=== PATIENT | female | born 1975 | race Caucasian/White ===

== ENCOUNTER → 2020-08-25 11:02 | Outpatient (CLI) | payer OTHER, SELFPAY ==
--- NOTE | 2020-08-25 07:37 | HP.PCM_ITS ---
History and Physical Date of Admission: 08/25/20February [place] e[place] 1975 ? ? REFERRING PHYSICIAN: Latricia Gonsales MD ? CHIEF COMPLAINT: Consult (Consult Abn Mammo) ? HPI: The patient is a 44 year old female presents with noting a mass of the left breast and also abnormal left breast radiological studies. She notes palpable breast mass of the upper outer quadrant of the left breast - noted for years. She also notes breast pain - it occurs cyclical, about two weeks prior to menstrual periods. She denies nipple discharge. She has not had previous breast biopsies or breast surgeries. No breast or ovarian cancer noted in family. ? Mammograms 07/29/2020 There is a 1.5 cm oval mass with a circumscribed margin in the left breast at 1 o'clock middle depth. No other significant masses or calcifications are seen in the breast. ? US 07/29/2020 There is 1.5 cm x 0.9 cm x 1.3 cm oval mass with a circumscribed margin in the left breast at 1 o'clock middle depth 4 cm from the nipple. ?This oval mass is hypoechoic with a well-defined boundary and internal echoes. ? This correlates with mammography findings. IMPRESSION: SUSPICIOUS FINDING - BIOPSY SHOULD BE CONSIDERED The 1.5 cm x 0.9 cm x 1.3 cm oval mass in the left breast is suspicious of malignancy. ?An ultrasound guided biopsy is recommended. She is s/p US guided left breast biopsy on 08/03/2020. 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 However, mammograms after the biopsy reveal that clip is in different location. ? ? PAST MEDICAL HISTORY ? Asthma ? ? PAST SURGICAL HISTORY ? APPENDECTOMY HX ? ? ? CHOLECYSTECTOMY HX ? ? ? CYSTOTOMY,STONE BASKET EXTRACT Right 07/14/2020 ? LAPAROSCOPY DIAGNOSTIC ? ? ? LEEP PROCEDURE (CONTACT [employer]M DEPT)_*FL ? ? ? LEEP PROCEDURE (CONTACT PRINTER DRY FILM DEPT)_*FL ? ? ? TUBAL LIGATION HX ? Current Outpatient Medications ? HYDROcodone-Ibuprofen 10-200 mg tab Take 1 tablet by mouth every 8 hours as needed for up to 30 days. CANCEL NORCO AND ANY OTHER OPIATE RX ON FILE ? Naproxen Sodium (ANAPROX DS) 550 mg tablet Take 1 tablet by mouth every 12 hours as needed (for pain). ? albuterol HFA (PROVENTIL HFA) 90 mcg/actuation inhaler Inhale 2 Puffs as instructed every 6 hours as needed. ? tamsulosin ER (FLOMAX) 0.4 mg Take 1 capsule by mouth daily at bedtime for 10 days. ? oxybutynin ER (DITROPAN XL) 10 mg 24 hr tablet Take 1 tablet by mouth once daily for 10 days. ? tiZANidine (ZANAFLEX) 4 mg tablet Take 1 tablet by mouth every 6 hours as needed (Muscle Spasm). ? ? ALLERGIES: Acetaminophen ? PERSONAL HISTORY: Tobacco Use ? Smoking status: Current Every Day Smoker ? ? Packs/day: 0.50 ? ? Types: Cigarettes ? ? Start date: 08/03/1990 ? Smokeless tobacco: Never Used ? Tobacco comment: started smoking since 1991 Substance Use Topics ? Alcohol use: Yes ? ? Comment: occasional ? Drug use: No ? FAMILY HISTORY ? Fibromyalgia Mother ? ? other (Chronic Back Pain) Mother ? ? No Known Problems Father ? ? No Known Problems Sister ? ? Bipolar disorder Brother ? ? No Known Problems Sister ? ? ? REVIEW OF SYSTEMS: General - denies fevers, denies anorexia, denies weight loss Cardiovascular - denies chest pain, denies history of [place] Pulmonary - denies shortness of breath, denies coughing up blood Gastrointestinal - denies abdominal pain, denies hematemesis, denies blood in stools Neurological - denies seizures, denies chronic numbness/weakness of extremities, denies chronic headaches Genitourinary - denies burning with urination, denies blood in urine Hematological - denies spontaneous/prolonged bleeding Skin - denies nonhealing skin wounds Musculoskeletal - no new muscle/bone pain Endocrine - denies diabetes, no thyroid problems Psychological ? denies hallucinations Obstetrical - menarche onset at age 14, , first at age 19, BCP use - denies, Breast feeding - denies, used DEPO for <1y at age 21, LMP one week ago ? PHYSICAL EXAMINATION: General: The patient is 44 year old female, well nourished, well hydrated in no acute distress. The patient is oriented to time, place, and person. VITALS: Ht: 5'4 Wt: 162# Temp 97.6F Head ? Normocephalic. EOM intact with sclera clear and no icterus noted. Mouth with mucus membranes moist. Neck - supple with no jugular venous distention noted. Trachea is midline. No carotid bruits noted. No thyroid enlargement or thyroid nodules detected. No masses noted. Chest/breast ? no asymmetry of breasts noted, no suspicious skin lesions noted - healed biopsy site, no nipple discharge and both nipples everted, no breast masses noted Lungs ? clear to auscultation. Normal breath sounds. No rales/rhonchi/wheezing noted. No labored breathing noted, such as retractions. No cough heard. Heart ? normal S1 and S2 auscultated. No rubs/clicks/murmurs noted. Regular rate. Abdomen ? soft and benign. Normal bowel sounds No abdominal bruits noted. Difficult to determine if any masses or organomegaly due to body habitus. Extremities ? no calf tenderness noted. No pitting edema noted. Skin ? normal skin integrity. Lymph ? no cervical adenopathy detected, no supraclavicular adenopathy detected, no axillary adenopathy detected Neurological ? gait normal, no focal deficits noted Psych ? calm and appropriate RADIOLOGIC STUDIES: As Noted ? IMPRESSION: abnormal left breast radiographs ? PLAN: I have discussed the above with the patient. I have offered left breast stereotactic breast biopsy for possibility that the US lesion did not correlate with the mammographic lesion. I have explained the procedure to the patient. I have counseled the patient as to the risks of the procedure, including but not limited to: infection, bleeding, injury to any blood vessels/nerves, scar tissue, wound infections, complications of anesthesia, etc. ? the patient understands. The patient wishes to proceed. I have answered all questions to the patient?s satisfaction and the patient has no further questions. ? . Diagnoses: (R92.8) Abnormal ultrasound of breast (primary encounter diagnosis) Return to Clinic: The patient is instructed to follow-up with me as above. ? Shyann Ornelas MD
--- NOTE | 2020-08-25 11:40 | BRBX_PTH ---
PATIENT: DESTINEYKENDRICK GUDELIA LOC: [facility] U#:[id number] AGE/SX: 50/F ROOM: RE08/25/[address]: Dr. Shyann Ornelas MD : 1975 BED: DIS: SPEC #: [id number] RECD: 08/25/20 12:16 STATUS: GUNNER MARIBELL #: [id number] TY: 08/25/20 11:[address]: Shyann Ornelas DEPT: SURGICAL PATHOLOGY RECD BY: Niko Cates Tissues: Left breast, NOS Procedures: Surgery Specimen Level IV HEADER OPERATION: Left breast stereotactic biopsy PRE-OP DIAGNOSIS: Left breast mass 1 o'clock middle depth TISSUE SUBMITTED: Left breast core tissue ISCHEMIC TIME: 1 minute FIXATION TIME: 8 hours MICROSCOPIC DIAGNOSIS Left breast mass at 1 o'clock, stereotactic needle core biopsy: Fragments of fibroadenoma. Focal granulation, fat necrosis and fibrinopurulent exudate suggestive of cyst rupture and associated inflammation. No evidence of malignancy. See comment. AM:sharon 08/26/20 COMMENT Clinical correlation is suggested. MICROSCOPIC DESCRIPTION Slides are reviewed. GROSS DESCRIPTION Received is one container labeled with the patient's name and not further designated. The specimen consists of multiple irregular and elongated fragments of montanez-yellow soft tissue that in aggregate measure 5 x 3 x 0.2 cm. The specimen is totally submitted in two cassettes. / AM:sharon 08/25/20 TC:2 CPT: 38204
--- NOTE | 2020-08-25 12:45 | OP.PCM_ITS ---
Report of Operation Date of Procedure: 08/25/20 Pre-Operative Diagnosis: abnormal lesion seen on left breast mammograms Post-Operative Diagnosis: same Surgery/Procedure Performed:: left breast stereotactic biopsy Description of Surgical Findings:: left breast mammographic lesion Type of Anesthesia:: Local - 1% xylocaine Specimen's removed: left breast tissue Estimated Blood Loss (mL): minimal Description of Procedure: After informed consent was given, the patient was brought into the Breast Biopsy suite. Appropriate time out protocol was followed. The patient was placed in the prone position on the stereotactic biopsy table. The patient?s left breast was then placed in the opening at the head of the biopsy table. A wealth management consultant compression mammogram was then obtained in the lateral view. The suspicious radiological lesion was thus identified. Stereo pictures of the lesion were then taken for XYZ coordinates. The Mammotome biopsy stylus was then positioned where it would be entering into the patient?s breast. The skin at this site was then cleansed with a surgical skin preparation. The skin and subcutaneous tissues at this site were then infiltrated with 1% xylocaine. A small skin incision was made with an 11 blade scalpel. The biopsy stylus was then positioned into the patient?s breast at the proper coordinates of depth. Using the Mammotome vacuum-assist device, several core samples of breast tissue were obtained. A hemostatic marker clip was then placed into the biopsy cavity and a wealth management consultant film revealed that it was properly deployed. The patient was then placed in the supine position and pressure was applied to the breast until no active bleeding was noted. Steristrips were applied to reapproximate the skin. A unilateral mammogram in the CC and MLO view were then taken which revealed that the marker clip was in the same area as the previous suspicious lesion. The patient tolerated the procedure well and was discharged from the Breast Biopsy suite in good condition. - Complications none noted
== END ==
LOC: BIRAD 11:05
PROVIDERS: Referring Provider Surgery; Visit Provider Surgery
DX: D24.2 Benign neoplasm of left breast (principal); R92.8 Other abnormal and inconclusive findings on diagnostic imaging of breast; J45.909 Unspecified asthma, uncomplicated; F17.210 Nicotine dependence, cigarettes, uncomplicated; Z79.51 Long term (current) use of inhaled steroids
CPT/HCPCS: 19081; 88305; J7050; A4648